=== PATIENT | male | born 1955 | race Caucasian/White ===

== ENCOUNTER → 2023-06-08 15:25 | Outpatient (BNVA) | payer OTHER, SELFPAY | PROVIDERS: PCP Family Medicine; Referring Provider Family Medicine; Visit Provider Internal Medicine Pulmonary Disease | DX: R06.02 Shortness of breath (principal); R91.8 Other nonspecific abnormal finding of lung field; Z77.090 Contact with and (suspected) exposure to asbestos; Z87.891 Personal history of nicotine dependence | CPT/HCPCS: 99204 ==

== ENCOUNTER 2023-06-30 06:44 | Outpatient (CLI) | payer OTHER, SELFPAY | END 2023-06-30 06:45 | disposition home or self-care (01) | PROVIDERS: PCP Family Medicine; Visit Provider Internal Medicine Pulmonary Disease | DX: R06.02 Shortness of breath (principal) | CPT/HCPCS: 94060; 94618; 94726; 94729 ==

== ENCOUNTER → 2023-09-10 08:01 | Outpatient (BNVA) | payer OTHER, SELFPAY | PROVIDERS: PCP Family Medicine; Visit Provider Internal Medicine Pulmonary Disease | DX: R91.8 Other nonspecific abnormal finding of lung field (principal); R06.02 Shortness of breath; Z77.090 Contact with and (suspected) exposure to asbestos; Z57.2 Occupational exposure to dust | CPT/HCPCS: 99214 ==

== ENCOUNTER 2025-09-18 13:27 | Outpatient (CLI) | payer OTHER, SELFPAY ==
--- NOTE | 2025-09-18 13:35 | USR_ITS ---
PROCEDURE INFORMATION: Exam: US Retroperitoneal, Complete, Kidneys and Bladder Exam date and time: 09/18/2025 1:50 PM Age: 69 years old Clinical indication: Condition or disease; Other: Complex, cyst; Additional info: Follow up on incidental findings/? Complex cyst TECHNIQUE: Imaging protocol: Real-time ultrasound of the retroperitoneum with image documentation. Complete exam focused on the bilateral kidneys and urinary bladder. COMPARISON: CT chest con [id number] 08/06/2023 12:26 PM FINDINGS: Right kidney: Normal. No stones. No hydronephrosis. 11.3 cm x 5.3 cm x 5.8 cm Left kidney: Normal. No stones. No hydronephrosis. 10.6 cm x 5.4 cm x 4.5 cm Urinary bladder: Unremarkable. Prevoid 153 cc. Prostate gland 4.4 cm x 2.8 cm x 3.8 cm US/US renal BI* [id number] IMPRESSION: Unremarkable kidneys and bladder.
== END 2025-09-18 13:28 | disposition home or self-care (01) ==
LOC: RAD 13:29
PROVIDERS: PCP Family Medicine; Visit Provider Family Medicine
DX: Z01.89 Encounter for other specified special examinations (principal); N28.1 Cyst of kidney, acquired
CPT/HCPCS: 76770